=== PATIENT | female | born 1975 | race African-American/Black ===

== ENCOUNTER → 2016-08-30 | Outpatient (CLI) | payer BC ==
--- NOTE | 2016-08-30 16:13 | RAD ---
Right lower extremity venous ultrasound, 08/30/2016 : History: Right leg pain Duplex evaluation including grayscale, color flow and spectral Doppler analysis was performed. The right common femoral and superficial femoral veins are patent. There is occlusive thrombus in the right popliteal vein. Patent posterior tibial and peroneal veins are present in the right calf. IMPRESSION: Occlusive thrombus in the right popliteal vein. Note: These findings were given to the ordering provider, Jyoti Villanueva, by the photonics engineering technologist at the time of the exam.
== END | disposition home or self-care (01) ==
LOC: US 15:38
PROVIDERS: ATTEND Physician Assistant Surgical
DX: M79.661 Pain in right lower leg (principal); R60.0 Localized edema
CPT/HCPCS: 93971

== ENCOUNTER 2017-09-05 22:57 | Emergency (ER) | payer BC ==
[2017-09-05 23:34] LABS: ANION GAP 13 (6-14); BASO # 0.1 x10^3/uL (0.0-0.2); BASO % 1 % (0-3); BLOOD UREA NITROGEN 8 mg/dL (7-20); BUN/CREATININE RATIO 11 (6-20); CALCIUM 8.8 mg/dL (8.5-10.1); CARBON DIOXIDE 24 mmol/L (21-32); CHLORIDE 101 mmol/L (98-107); CREATININE 0.7 mg/dL (0.6-1.0); EOS # 0.8 x10^3/uL (0.0-0.7); EOS % 6 % (0-3); GLUCOSE 104 mg/dL (70-99); HEMOGLOBIN 8.6 g/dL (12.0-15.5); LYMPH # 3.2 x10^3/uL (1.0-4.8); LYMPH % 23 % (24-48); MEAN CORPUSCULAR HEMOGLOBIN 22 pg (25-35); MEAN CORPUSCULAR HGB CONC 31 g/dL (31-37); MEAN CORPUSCULAR VOLUME 70 fL (79-100); MONO # 0.8 x10^3/uL (0.0-1.1); MONO % 6 % (0-9); NEUT # 8.9 x10^3uL (1.8-7.7); NEUT % 64 % (31-73); PLATELET COUNT 478 x10^3/uL (140-400); POTASSIUM 3.3 mmol/L (3.5-5.1); RED CELL DISTRIBUTION WIDTH 20.3 % (11.5-14.5); SODIUM 138 mmol/L (136-145); WHITE BLOOD COUNT 13.8 x10^3/uL (4.0-11.0)
[2017-09-05 23:35] LABS: ADD MAN DIFF? YES
[2017-09-05 23:41] LABS: ALBUMIN 3.9 g/dL (3.4-5.0); ALBUMIN/GLOBULIN RATIO 0.9 (1.0-1.7); ALK PHOS 76 U/L (46-116); ALT (SGPT) 13 U/L (14-59); AST (SGOT) 12 U/L (15-37); TOTAL BILIRUBIN 0.3 mg/dL (0.2-1.0); TOTAL PROTEIN 8.3 g/dL (6.4-8.2)
[2017-09-05 23:43] LABS: TROPONINI < 0.017 ng/mL (0.000-0.055)
[2017-09-05 23:47] LABS: % EOS 2 % (0-5); % LYMPHS 12 % (24-48); % MONOS 5 % (0-10); % SEGS 81 % (35-66); ANISOCYTOSIS MOD; HYPOCHROMIA MARKED; MICROCYTOSIS MARKED; PLT ESTIMATE INCREASED (ADEQUATE); POIKILOCYTOSIS MOD; POLYCHROMASIA SLIGHT
[2017-09-05 23:48] LABS: HELMET CELLS OCC; OVALOCYTES MOD; TARGET CELLS OCC
[2017-09-05] MEDS: IOHEXOL 300 MG/ML 100ML VIAL. IV (23:56)
[2017-09-06] MEDS ORDERED: CONTRAST GIVEN MC
[2017-09-06] MEDS: RIVAROXABAN 15 MG TABLET. PO (01:05)
[2017-09-06 01:28] LABS: FIBRINOGEN 353 mg/dL (200-440); INR 1.3 (0.8-1.1); PARTIAL THROMBOPLASTIN TIME 31 SEC (24-38)
[2017-09-06 16:18] LABS: HOMOCYSTINE LEVEL 9.2 umol/L (0.0-15.0)
[2017-09-11 18:11] LABS: PROTHROMBIN GENE MUTATION Negative (.)
== END 2017-09-06 01:38 | disposition home or self-care (01) ==
LOC: ER 09-06 01:38
DX: R09.1 Pleurisy (principal); R00.0 Tachycardia, unspecified; I26.99 Other pulmonary embolism without acute cor pulmonale; Z86.718 Personal history of other venous thrombosis and embolism; Z79.01 Long term (current) use of anticoagulants; Z88.5 Allergy status to narcotic agent; Z91.013 Allergy to seafood
CPT/HCPCS: 36415; 71045; 71275; 80053; 81240; 83090; 84484; 85007; 85025; 85220; 85384; 85610; 85730; 93005; 99285-25; Q9967

== ENCOUNTER 2017-09-27 09:29 | Inpatient (IN) | payer BC ==
[2017-09-27 10:09] LABS: BASO % 1 % (0-3); EOS # 0.1 x10^3/uL (0.0-0.7); EOS % 1 % (0-3); HEMATOCRIT 21.3 % (36.0-47.0); LYMPH % 55 % (24-48); MEAN CORPUSCULAR HEMOGLOBIN 21 pg (25-35); MEAN CORPUSCULAR HGB CONC 31 g/dL (31-37); MEAN CORPUSCULAR VOLUME 67 fL (79-100); MONO # 0.3 x10^3/uL (0.0-1.1); MONO % 5 % (0-9); NEUT # 2.1 x10^3uL (1.8-7.7); NEUT % 39 % (31-73); PLATELET COUNT 422 x10^3/uL (140-400); RED BLOOD COUNT 3.16 x10^6/uL (3.50-5.40); RED CELL DISTRIBUTION WIDTH 20.4 % (11.5-14.5); WHITE BLOOD COUNT 5.5 x10^3/uL (4.0-11.0)
[2017-09-27 10:18] LABS: URINE HCG POC HCG NEGATIVE (Negative)
[2017-09-27 10:23] LABS: ANION GAP 10 (6-14); BLOOD UREA NITROGEN 9 mg/dL (7-20); BUN/CREATININE RATIO 11 (6-20); CALCIUM 8.8 mg/dL (8.5-10.1); CARBON DIOXIDE 25 mmol/L (21-32); CHLORIDE 105 mmol/L (98-107); CREATININE 0.8 mg/dL (0.6-1.0); GFR 94.3; GLUCOSE 98 mg/dL (70-99); HEMOGLOBIN 6.6 g/dL (12.0-15.5); POTASSIUM 3.4 mmol/L (3.5-5.1); SODIUM 140 mmol/L (136-145)
[2017-09-27 10:24] LABS: ADD MAN DIFF? YES; ALBUMIN 3.6 g/dL (3.4-5.0); ALBUMIN/GLOBULIN RATIO 0.9 (1.0-1.7); ALK PHOS 64 U/L (46-116); ALT (SGPT) 14 U/L (14-59); AST (SGOT) 14 U/L (15-37); LIPASE 127 U/L (73-393); MAGNESIUM 1.9 mg/dL (1.8-2.4); TOTAL BILIRUBIN 0.2 mg/dL (0.2-1.0); TOTAL PROTEIN 7.5 g/dL (6.4-8.2)
[2017-09-27 10:30] LABS: BARBITURATES NEG (NEG); BENZODIAZEPINES NEG (NEG); CANNABINOIDS POS (NEG); COCAINE NEG (NEG); METHADONE NEG (NEG); OPIATES NEG (NEG); PHENCYCLIDINE NEG (NEG)
[2017-09-27 10:30] LABS: TROPONINI < 0.017 ng/mL (0.000-0.055)
[2017-09-27 10:31] LABS: AMPHETAMINE/METHAMPHETAMINE NEG (NEG); ETHANOL, URINE NEG (NEG)
[2017-09-27 10:31] LABS: THYROID STIM HORMONE (TSH) 0.327 uIU/mL (0.358-3.74)
[2017-09-27 10:32] LABS: NT-PRO BNP 28 pg/mL (0-124)
[2017-09-27 10:32] LABS: BILIRUBIN,URINE NEGATIVE (NEG); CKMB MASS < 0.5 ng/mL (0.0-3.6); CLARITY,URINE CLEAR; COLOR,URINE YELLOW; CREATINE KINASE 97 U/L (26-192); GLUCOSE,URINE NEGATIVE (NEG); NITRITE,URINE NEGATIVE (NEG); PH,URINE 7.5; PROTEIN,URINE NEGATIVE (NEG-TRACE); UROBILINOGEN,URINE 0.2 mg/dL (0.2 mg/dL)
[2017-09-27 10:49] LABS: BACTERIA,URINE 0 /HPF (0-FEW); RBC,URINE 0 /HPF (0-2); WBC,URINE 0 /HPF (0-4)
[2017-09-27 11:06] LABS: % BANDS 2 % (0-9); % BASOS 3 % (0-3); % EOS 3 % (0-5); % LYMPHS 32 % (24-48); % MONOS 5 % (0-10); % SEGS 55 % (35-66)
[2017-09-27 11:07] LABS: ANISOCYTOSIS PRESENT; BIZZARE CELLS PRESENT; HYPOCHROMIA PRESENT; MICROCYTOSIS PRESENT; OVALOCYTES PRESENT; PLT ESTIMATE ADEQUATE (ADEQUATE); POIKILOCYTOSIS PRESENT; SCHISTOCYTES FEW
[2017-09-27 11:13] LABS: INR 1.6 (0.8-1.1); PROTHROMBIN TIME PATIENT 17.8 SEC (11.7-14.0)
[2017-09-27 11:22] LABS: D-DIMER < 0.27 ug/mlFEU (0.00-0.50)
[2017-09-27] MEDS ORDERED: ONDANSETRON PF 4 MG/2 ML VIAL. IV ×2 (12:15→13:45)
[2017-09-27] MEDS: IV NORMAL SALINE 1000ML BAG 1,000 ML IV (12:57)
[2017-09-27] MEDS: FAMOTIDINE 20 MG/2 ML VIAL IVP ×2 (12:57→20:56)
[2017-09-27 13:10] LABS: RETIC COUNT 1.6 % (0.5-2.5)
[2017-09-27] MEDS: IV RINGERS,LACTATED 1000ML 1,000 ML IV (13:40)
[2017-09-27] MEDS ORDERED: PROPOFOL 20 ML IV (13:42)
[2017-09-27] MEDS ORDERED: LIDOCAINE 2% 100 MG/5 ML SYRINGE. (13:42)
[2017-09-27] MEDS ORDERED: PROCHLORPERAZINE 10 MG/2 ML VIAL. IV (13:45)
[2017-09-27] MEDS ORDERED: HYDROmorphone 2 MG/ML VIAL IV (13:45)
[2017-09-27] MEDS ORDERED: LIDOCAINE 1% PF 2 ML VIAL. ID (13:45)
[2017-09-27] MEDS ORDERED: fentaNYL PF VIAL 100 MCG/2 ML VIAL IV ×2 (13:45)
[2017-09-27] MEDS ORDERED: MORPHINE SULFATE 2 MG/ML DISP.SYRIN. IV (13:45)
[2017-09-27 13:46] LABS: % SAT IRON 2 % (15-34); IRON,SERUM 8 ug/dL (50-170)
[2017-09-27 15:22] LABS: IMMEDIATE SPIN CROSSMATCH 1 1
[2017-09-27 16:18] LABS: VITAMIN-B12 263 pg/mL (247-911)
[2017-09-27 16:18] LABS: FOLATE 10.86 ng/ml (3.2-20.0)
[2017-09-28 04:34] LABS: ADD MAN DIFF? NO
[2017-09-28 04:44] LABS: BASO % 1 % (0-3); EOS # 0.1 x10^3/uL (0.0-0.7); EOS % 2 % (0-3); HEMATOCRIT 23.2 % (36.0-47.0); HEMOGLOBIN 7.3 g/dL (12.0-15.5); LYMPH # 2.8 x10^3/uL (1.0-4.8); LYMPH % 56 % (24-48); MEAN CORPUSCULAR HEMOGLOBIN 22 pg (25-35); MEAN CORPUSCULAR HGB CONC 32 g/dL (31-37); MEAN CORPUSCULAR VOLUME 70 fL (79-100); MONO # 0.3 x10^3/uL (0.0-1.1); MONO % 5 % (0-9); NEUT # 1.8 x10^3uL (1.8-7.7); NEUT % 36 % (31-73); PLATELET COUNT 359 x10^3/uL (140-400); RED BLOOD COUNT 3.32 x10^6/uL (3.50-5.40); RED CELL DISTRIBUTION WIDTH 21.1 % (11.5-14.5); WHITE BLOOD COUNT 5.1 x10^3/uL (4.0-11.0)
[2017-09-28 05:08] LABS: ALBUMIN/GLOBULIN RATIO 0.9 (1.0-1.7); ALK PHOS 55 U/L (46-116); ALT (SGPT) 15 U/L (14-59); ANION GAP 9 (6-14); AST (SGOT) 14 U/L (15-37); BLOOD UREA NITROGEN 11 mg/dL (7-20); BUN/CREATININE RATIO 16 (6-20); CALCIUM 8.2 mg/dL (8.5-10.1); CARBON DIOXIDE 23 mmol/L (21-32); CHLORIDE 108 mmol/L (98-107); CREATININE 0.7 mg/dL (0.6-1.0); GLUCOSE 85 mg/dL (70-99); POTASSIUM 3.6 mmol/L (3.5-5.1); SODIUM 140 mmol/L (136-145); TOTAL BILIRUBIN 0.5 mg/dL (0.2-1.0); TOTAL PROTEIN 6.5 g/dL (6.4-8.2)
[2017-09-28] MEDS: FAMOTIDINE 20 MG/2 ML VIAL IVP (09:14)
[2017-09-28] MEDS: FERROUS SULFATE ORAL 300 MG/5 ML SOLUTION. PO (10:55)
[2017-09-28] MEDS ORDERED: FAMOTIDINE 20 MG TABLET. PO (21:00)
== END 2017-09-28 11:20 | disposition home or self-care (01) | DRG 761 ==
LOC: ER 09:29 → 5 NORTH 11:49
PROC: 0DJ08ZZ Inspection of Upper Intestinal Tract, Via Natural or Artificial Opening Endoscopic (ICD-10-PCS; principal; 2017-09-27 14:00)
PROC: 30233N1 Transfusion of Nonautologous Red Blood Cells into Peripheral Vein, Percutaneous Approach (ICD-10-PCS; 2017-09-27 14:02)
DX: D25.9 Leiomyoma of uterus, unspecified (principal); D50.9 Iron deficiency anemia, unspecified; F12.90 Cannabis use, unspecified, uncomplicated; F17.210 Nicotine dependence, cigarettes, uncomplicated; F41.9 Anxiety disorder, unspecified; N92.0 Excessive and frequent menstruation with regular cycle; K29.60 Other gastritis without bleeding; R51 Headache; K21.9 Gastro-esophageal reflux disease without esophagitis; Z86.711 Personal history of pulmonary embolism; Z86.718 Personal history of other venous thrombosis and embolism; Z98.891 History of uterine scar from previous surgery; Z88.6 Allergy status to analgesic agent; Z91.013 Allergy to seafood; Z71.6 Tobacco abuse counseling; Z79.1 Long term (current) use of non-steroidal anti-inflammatories (NSAID); Z87.11 Personal history of peptic ulcer disease; Z79.01 Long term (current) use of anticoagulants
CPT/HCPCS: 36415; 71045; 80053; 80307; 81001; 81025; 82553; 82607; 82746; 83540; 83550; 83690; 83735; 83880; 84443; 84484; 85007; 85025; 85045; 85379; 85610; 86850; 86900; 86901; 86920; 93005; 96360; 99285; 99285-25; 99406; J2704; J7030; P9016; S0028

== ENCOUNTER → 2018-06-21 | Outpatient (CLI) | payer BC ==
[2017-09-28 10:45] VITALS: BP 102/70
[~2018-06-21] MED LIST: APIX5TAB PO; FERR325T14 PO; PANT40TA3 PO; RIVA15TA PO; SERT50TA PO
--- NOTE | 2018-07-08 16:40 | KCIC ---
Bilateral digital screening mammograms: Reason for examination: Routine screening. Comparison is made to previous study dated 05/29/2013. Interpretation was made with the benefit of CAD. The skin and nipples show no abnormalities. No abnormal axillary lymph nodes are seen. The breast parenchyma is heterogeneously dense. (Breast density: Category C.) There are no dominant masses, suspicious calcifications or architectural distortion. Impression: No evidence of malignancy. Recommend routine screening. Your patient's mammogram demonstrates that she has dense breast tissue (breast density category C or D), which could hide abnormalities, and if she has other risk factors for breast cancer that have been identified, she might benefit from supplemental screening tests that may be suggested by you as her ordering physician. Dense breast tissue, in and of itself, is a relatively common condition. Therefore, this information is not provided to cause undue concern, but rather to raise your awareness and to promote discussion with your patient regarding the presence of other risk factors, in addition to dense breast tissue. Your patient's mammography results will be sent to her. BI-RAD Category 1: Negative. "Our facility is accredited by the [employer] Mammography Program." This patient's information has been entered into a reminder system for the patient to be notified with the results of her examination and a target date for the next mammogram. Electronically signed by: Krista Lewis MD (07/08/2018 4:36 PM) [id number]
== END | disposition home or self-care (01) ==
LOC: KCIC MAMMO 08:49
PROVIDERS: ATTEND Nurse Practitioner Gerontology
DX: Z12.31 Encounter for screening mammogram for malignant neoplasm of breast (principal)
CPT/HCPCS: 77067

== ENCOUNTER 2018-08-06 10:27 | Emergency (ER) | payer BC ==
[~2018-08-06] VITALS: Ht 157.5 cm; Wt 59.0 kg
[2018-08-06] MEDS ORDERED: ASPIRIN 325 MG TABLET PO ONE (11:00)
[2018-08-06] MEDS ORDERED: IV NORMAL SALINE 1000ML BAG 1,000 ML IV ONE (11:00)
[2018-08-06] MEDS ORDERED: IOHEXOL 300 MG/ML 100ML VIAL. IV ONE (11:15)
--- NOTE | 2018-08-06 11:21 | EKG ---
[facility] [address] [place] [address] Test Date: 2018-08-06 Test Time: 10:39:13 Pat Name: ETHAN GRIFFITH Department: Room: Gender: F Engineering Scientist: : 1975 Requested By: ISRAEL KING Order Number: [id number] Reading MD: Measurements Intervals [place] Rate: 89 P: 53 MT: 144 QRS: 12 QRSD: 84 T: 56 QT: 362 QTc: 441 Interpretive Statements SINUS RHYTHM NORMAL ECG RI6.01 No previous ECG available for comparison
[2018-08-06 11:31] LABS: CALCIUM 8.7 mg/dL (8.5-10.1); CREATININE 0.8 mg/dL (0.6-1.0); GFR 93.9; POTASSIUM 3.6 mmol/L (3.5-5.1)
[2018-08-06 11:37] LABS: ALBUMIN 3.9 g/dL (3.4-5.0); ALBUMIN/GLOBULIN RATIO 0.8 (1.0-1.7); MAGNESIUM 1.8 mg/dL (1.8-2.4); TOTAL BILIRUBIN 0.1 mg/dL (0.2-1.0); TOTAL PROTEIN 8.6 g/dL (6.4-8.2)
[2018-08-06 11:45] LABS: CREATINE KINASE 114 U/L (26-192)
[2018-08-06 11:51] LABS: BASO # 0.1 x10^3/uL (0.0-0.2); BASO % 1 % (0-3); EOS # 0.1 x10^3/uL (0.0-0.7); EOS % 1 % (0-3); HEMATOCRIT 30.1 % (36.0-47.0); HEMOGLOBIN 9.3 g/dL (12.0-15.5); LYMPH # 3.7 x10^3/uL (1.0-4.8); LYMPH % 45 % (24-48); MEAN CORPUSCULAR HEMOGLOBIN 22 pg (25-35); MEAN CORPUSCULAR HGB CONC 31 g/dL (31-37); MEAN CORPUSCULAR VOLUME 72 fL (79-100); MONO # 0.4 x10^3/uL (0.0-1.1); MONO % 5 % (0-9); NEUT # 3.9 x10^3uL (1.8-7.7); NEUT % 48 % (31-73); PLATELET COUNT 319 x10^3/uL (140-400); RED CELL DISTRIBUTION WIDTH 22.5 % (11.5-14.5); WHITE BLOOD COUNT 8.1 x10^3/uL (4.0-11.0)
[2018-08-06 11:59] LABS: PROTHROMBIN TIME PATIENT 22.7 SEC (11.7-14.0)
--- NOTE | 2018-08-06 12:34 | RAD ---
CT ANGIOGRAPHY CHEST Indication: Chest pain, history of pulmonary embolism. . Comparison: September 05, 2017 Technique: After intravenous contrast administration, CT imaging was performed of the chest. MIP reconstructions were obtained. Exposure: One or more of the following individualized dose reduction techniques were utilized for this examination: 1. Automated exposure control 2. Adjustment of the mA and/or kV according to patient size 3. Use of iterative reconstruction technique. FINDINGS: Pulmonary arteries: No evidence of pulmonary embolism on today's study. Thoracic aorta: Pulsatility artifact of the ascending aorta. No evidence of aortic aneurysm. No descending aortic dissection. Thyroid gland:Visualized aspect is unremarkable. Lymph nodes:No significant enlargement Heart: No significant pericadial effusion. Esophagus: Unremarkable Pleural spaces: No significant effusion Lungs: Tiny right upper lung micronodule is again identified. No airspace consolidation or infiltrate. Trachea and central airways: Patent Bones: No destructive process Upper abdomen: Slices through the upper abdomen are limited due to the technique .No obvious acute findings. IMPRESSION: 1. Negative for pulmonary embolism on today's study. 2. 3 mm right upper lung nodule again identified. Electronically signed by: Clark Laws MD (08/06/2018 12:30 PM) [facility]
--- NOTE | 2018-08-06 12:40 | RAD ---
Left lower extremity venous duplex study 08/06/2018 Clinical History: Left leg pain. Technique: Using a combination of real time ultrasound imaging and color-flow and pulse Doppler imaging techniques along with graded compression and augmentation, duplex evaluation of the deep venous system of the left lower extremity was performed. Multiple images were obtained. Findings: There is no sonographic evidence of deep venous thrombosis involving the visualized deep venous structures of the left lower extremity. Impression: Negative study. Electronically signed by: Vinny Em MD (08/06/2018 12:36 PM) [facility]
[2018-08-06 12:51] LABS: % ATYL 1 % (0-0); % BANDS 1 % (0-9); % LYMPHS 17 % (24-48); % MONOS 5 % (0-10); % SEGS 76 % (35-66)
[2018-08-06 12:52] LABS: ANISOCYTOSIS MOD; HYPOCHROMIA SLIGHT; PLT ESTIMATE ADEQUATE (ADEQUATE); POIKILOCYTOSIS SLIGHT
[2018-08-06 12:53] LABS: BIZZARE CELLS OCC
--- NOTE | 2018-08-06 13:04 | PHYS DOC ---
Past Medical History Past Medical History: Anemia, DVT, Other Additional Past Medical Histor: uterine fibroid,PE X 2 Past Surgical History: Other Additional Past Surgical Histo: UTERINE FIBROIDS REMOVED Alcohol Use: Occasionally Drug Use: None Adult General Chief Complaint Chief Complaint: CHEST PAIN HPI HPI Patient is a 43 year old [f__sex] who presents with [] Review of Systems Review of Systems Constitutional: Denies fever or chills [] Eyes: Denies change in visual acuity, redness, or eye pain [] HENT: Denies nasal congestion or sore throat [] Respiratory: Denies cough or shortness of breath [] Cardiovascular: No additional information not addressed in HPI [] GI: Denies abdominal pain, nausea, vomiting, bloody stools or diarrhea [] : Denies dysuria or hematuria [] Musculoskeletal: Denies back pain or joint pain [] Integument: Denies rash or skin lesions [] Neurologic: Denies headache, focal weakness or sensory changes [] Endocrine: Denies polyuria or polydipsia [] All other systems were reviewed and found to be within normal limits, except as documented in this note. Current Medications Current Medications Current Medications Medications (Trade) Dose Ordered Sig/Michelle Start Time Stop Time Status Last Admin Dose Admin Aspirin (Malika Aspirin) 325 mg 1X ONCE 08/06/18 11:00 08/06/18 11:02 DC 08/06/18 11:16 325 MG Dexamethasone Sodium Phosphate (Decadron) 10 mg 1X ONCE 08/06/18 13:15 08/06/18 13:16 DC 08/06/18 13:24 10 MG Iohexol (Omnipaque 300 Mg/ml) 90 ml 1X ONCE 08/06/18 11:15 08/06/18 11:18 DC 08/06/18 11:53 75 ML Sodium Chloride 1,000 ml @ 1,000 mls/hr 1X ONCE 08/06/18 11:00 08/06/18 11:59 DC 08/06/18 11:16 1,000 MLS/HR Allergies Allergies Allergies Coded Allergies Type Severity Reaction Last Updated Verified morphine Allergy Intermediate 09/27/17 Yes shellfish derived Allergy Intermediate 09/27/17 Yes Physical Exam Physical Exam Constitutional: Well developed, well nourished, no acute distress, non-toxic appearance. [] HENT: Normocephalic, atraumatic, bilateral external ears normal, oropharynx moist, no oral exudates, nose normal. [] Eyes: PERRLA, EOMI, conjunctiva normal, no discharge. [] Neck: Normal range of motion, no tenderness, supple, no stridor. [] Cardiovascular:Heart rate regular rhythm, no murmur [] Lungs & Thorax: Bilateral breath sounds clear to auscultation [] Abdomen: Bowel sounds normal, soft, no tenderness, no masses, no pulsatile masses. [] Skin: Warm, dry, no erythema, no rash. [] Back: No tenderness, no CVA tenderness. [] Extremities: No tenderness, no cyanosis, no clubbing, ROM intact, no edema. [] Neurologic: Alert and oriented X 3, normal motor function, normal sensory function, no focal deficits noted. [] Psychologic: Affect normal, judgement normal, mood normal. [] Current Patient Data Vital Signs Vital Signs Date Time Temp Pulse Resp B/P (MAP) Pulse Ox O2 Delivery O2 Flow Rate FiO2 08/06/18 13:59 78 110/71 (84) 100 Room Air 08/06/18 10:40 98.5 20 98.5 Lab Values Laboratory Tests Test 08/06/18 10:55 08/06/18 11:35 08/06/18 13:21 Sodium Level 137 mmol/L (136-145) Potassium Level 3.6 mmol/L (3.5-5.1) Chloride Level 103 mmol/L (98-107) Carbon Dioxide Level 24 mmol/L (21-32) Anion Gap 10 (6-14) Blood Urea Nitrogen 9 mg/dL (7-20) Creatinine 0.8 mg/dL (0.6-1.0) Estimated GFR (Cockcroft-Gault) 93.9 BUN/Creatinine Ratio 11 (6-20) Glucose Level 120 mg/dL (70-99) H Calcium Level 8.7 mg/dL (8.5-10.1) Magnesium Level 1.8 mg/dL (1.8-2.4) Total Bilirubin 0.1 mg/dL (0.2-1.0) L Aspartate Amino Transferase (AST) 10 U/L (15-37) L Alanine Aminotransferase (ALT) 13 U/L (14-59) L Alkaline Phosphatase 82 U/L (46-116) Creatine Kinase 114 U/L (26-192) Creatine Kinase MB (Mass) < 0.5 ng/mL (0.0-3.6) Creatine Kinase MB Relative Index % (0-4) Troponin I Quantitative < 0.017 ng/mL (0.000-0.055) < 0.017 ng/mL (0.000-0.055) CS-Lie-G-Type Natriuretic Peptide 17 pg/mL (0-124) Total Protein 8.6 g/dL (6.4-8.2) H Albumin 3.9 g/dL (3.4-5.0) Albumin/Globulin Ratio 0.8 (1.0-1.7) L Lipase 149 U/L (73-393) White Blood Count 8.1 x10^3/uL (4.0-11.0) Red Blood Count 4.20 x10^6/uL (3.50-5.40) Hemoglobin 9.3 g/dL (12.0-15.5) L Hematocrit 30.1 % (36.0-47.0) L Mean Corpuscular Volume 72 fL (79-100) L Mean Corpuscular Hemoglobin 22 pg (25-35) L Mean Corpuscular Hemoglobin Concent 31 g/dL (31-37) Red Cell Distribution Width 22.5 % (11.5-14.5) H Platelet Count 319 x10^3/uL (140-400) Neutrophils (%) (Auto) 48 % (31-73) Lymphocytes (%) (Auto) 45 % (24-48) Monocytes (%) (Auto) 5 % (0-9) Eosinophils (%) (Auto) 1 % (0-3) Basophils (%) (Auto) 1 % (0-3) Neutrophils # (Auto) 3.9 x10^3uL (1.8-7.7) Lymphocytes # (Auto) 3.7 x10^3/uL (1.0-4.8) Monocytes # (Auto) 0.4 x10^3/uL (0.0-1.1) Eosinophils # (Auto) 0.1 x10^3/uL (0.0-0.7) Basophils # (Auto) 0.1 x10^3/uL (0.0-0.2) Segmented Neutrophils % 76 % (35-66) H Band Neutrophils % 1 % (0-9) Lymphocytes % 17 % (24-48) L Atypical Lymphocytes % (Manual) 1 % (0-0) H Monocytes % 5 % (0-10) Platelet Estimate Adequate (ADEQUATE) Large Platelets Occ Hypochromasia Slight Poikilocytosis Slight Anisocytosis Mod RBC Morphology Bizarre Forms Occ Prothrombin Time 22.7 SEC (11.7-14.0) H Prothrombin Time INR 2.0 (0.8-1.1) H PTT 38 SEC (24-38) Laboratory Tests 08/06/18 11:35 Laboratory Tests 08/06/18 10:55 EKG EKG @1039 NSR at 89bpm, NO ST elevation, Radiology/Procedures Radiology/Procedures PROCEDURE: CT ANGIOGRAPHY CHEST CT ANGIOGRAPHY CHEST Indication: Chest pain, history of pulmonary embolism. . Comparison: September 05, 2017 Technique: After intravenous contrast administration, CT imaging was performed of the chest. MIP reconstructions were obtained. Exposure: One or more of the following individualized dose reduction techniques were utilized for this examination: 1. Automated exposure control 2. Adjustment of the mA and/or kV according to patient size 3. Use of iterative reconstruction technique. FINDINGS: Pulmonary arteries: No evidence of pulmonary embolism on today's study. Thoracic aorta: Pulsatility artifact of the ascending aorta. No evidence of aortic aneurysm. No descending aortic dissection. Thyroid gland:Visualized aspect is unremarkable. Lymph nodes:No significant enlargement Heart: No significant pericadial effusion. Esophagus: Unremarkable Pleural spaces: No significant effusion Lungs: Tiny right upper lung micronodule is again identified. No airspace consolidation or infiltrate. Trachea and central airways: Patent Bones: No destructive process Upper abdomen: Slices through the upper abdomen are limited due to the technique .No obvious acute findings. IMPRESSION: 1. Negative for pulmonary embolism on today's study. 2. 3 mm right upper lung nodule again identified. Electronically signed by: Clark Laws MD (08/06/2018 12:30 PM) Course & Med Decision Making Course & Med Decision Making Pertinent Labs and Imaging studies reviewed. (See chart for details) [] Dragon Disclaimer Dragon Disclaimer This electronic medical record was generated, in whole or in part, using a voice recognition dictation system. Departure Departure Impression: Primary Impression: Atypical chest pain Disposition: 01 HOME, SELF-CARE Condition: STABLE Referrals: SHAHAB RUSSELL APRN (PCP) Patient Instructions: Chest Pain (Nonspecific), Hhrw-dt-Conm Scripts Orphenadrine Citrate (ORPHENADRINE CITRATE) 100 Mg Tablet.er 100 MG PO BID PRN for MUSCLE PAIN, #14 Prov: CLARK KING DO 08/06/18 Prednisone (PREDNISONE) 20 Mg Tablet 2 TAB PO DAILY, #8 TAB Start tomorrow 08/07/18. Prov: CLARK KING DO 08/06/18 CLARK KING DO Aug 06, 2018 13:04
[2018-08-06] MEDS ORDERED: DEXAMETHASONE SOD PHOS 20 MG/5 ML VIAL. IV ONE (13:15)
[2018-08-06 13:59] VITALS: BP 110/71
[2018-08-06] MEDS ORDERED: PRED20TA PO (13:59)
[2018-08-06] MEDS ORDERED: ORPH100T PO (13:59)
== END 2018-08-06 14:08 | disposition home or self-care (01) ==
LOC: ER 10:27
DX: R07.89 Other chest pain (principal); M79.605 Pain in left leg; Z86.718 Personal history of other venous thrombosis and embolism; Z88.5 Allergy status to narcotic agent; Z91.013 Allergy to seafood
CPT/HCPCS: 36415; 71275; 80053; 82553; 83690; 83735; 83880; 84484; 85007; 85025; 85610; 85730; 93005; 93971; 96374; 99284; J1100; J7030; Q9967

== ENCOUNTER → 2020-05-18 | Outpatient (CLI) | payer BC ==
[~2020-05-18] MED LIST changes: +ORPH100T PO; -PANT40TA3 PO; +PANT40TA77 PO; +PRED20TA PO
--- NOTE | 2020-05-18 14:46 | KCIC ---
Left lower extremity venous doppler ultrasound History: Left lower extremity pain Comparison: None Findings: Multiple grayscale, color, and duplex spectral analysis sonographic images were acquired of the left lower extremity veins to evaluate for the presence of DVT. There is normal phasicity. Normal compression, color-flow, and augmentation is demonstrated from the left common femoral to the popliteal veins. There is normal color flow of the proximal greater saphenous and profunda femoris veins. There is normal color flow of segments of the calf veins. At site of pain in the medial left calf region, there is focus of echogenicity within a superficial vein. Impression: 1. There is no evidence of deep venous thrombosis from the left common femoral to the popliteal veins. 2. There is focus of superficial thrombophlebitis corresponding with site of pain of the medial left calf region. Electronically signed by: Monico Rowe MD (05/18/2020 2:43 PM) [id number]
== END | disposition home or self-care (01) ==
LOC: KCIC US 10:51
PROVIDERS: ATTEND Family Medicine
DX: I80.8 Phlebitis and thrombophlebitis of other sites (principal)
CPT/HCPCS: 93971

== ENCOUNTER → 2020-08-18 | Outpatient (CLI) | payer BC ==
--- NOTE | 2020-08-18 07:03 | RAD ---
Pelvic ultrasound dated 08/18/2020. No comparison available. Clinical data indication: Pelvic pain and bloating. FINDINGS: Transabdominal pelvic ultrasound was performed. The uterus measures 15.8 x 10.1 x 9.0 cm. There are m ultiple mass lesions throughout the myometrium, consistent with fibroids. Largest mass measures up to 8.4 cm. Endometrium is not well visualized and obscured by the myometrial masses. Right ovary measures 3.3 x 2.3 x 1.8 cm. Left ovary measures 5.3 x 3.2 x 2.4 cm. No adnexal mass or f ree fluid. There is normal color Doppler flow to both ovaries. There is a small simple cyst or domina nt follicle left ovary measuring up to 1.5 cm. IMPRESSION: 1. No acute sonographic abnormality. 2. Fibroid uterus. Electronically signed by: Clark Velásquez MD (08/18/2020 7:00 AM) [facility]
== END ==
LOC: US 06:30
PROVIDERS: ATTEND Family Medicine
DX: D25.9 Leiomyoma of uterus, unspecified (principal); R14.0 Abdominal distension (gaseous)
CPT/HCPCS: 76856

== ENCOUNTER → 2020-10-01 | Outpatient (CLI) | payer BC ==
[~2020-10-01] MED LIST changes: +CEPH250C PO; +IBUP-1060 PO; +IOHEXOL 300 MG/ML 100ML VIAL. IV ONE; +OXYC1TAB15 PO; +RIVA20TA2 PO
--- NOTE | 2020-10-01 10:53 | KCIC ---
Study: CT CHEST WITH CONTRAST - PULMONARY ANGIOGRAM History: Hemoptysis. History of DVT. Shortness of air. Comparison: 08/06/2018 Technique: Helical CT of the chest performed after the administration of 100 cc Omnipaque 300 intrav enous contrast and timed for angiographic evaluation of the pulmonary arteries per PE protocol. Coron al and sagittal 3D MIP reformations were obtained. One or more of the following individualized dose reduction techniques were utilized for this examinat ion: 1. Automated exposure control 2. Adjustment of the mA and/or kV according to patient size 3. Use of iterative reconstruction technique. Findings: Pulmonary Arteries: Numerous pulmonary emboli extending into all lung lobes, the far distal aspect of the main right pulmonary artery and varying involvement of lobar, segmental and subsegmental vessels . No saddle embolism. Associated pulmonary infarct laterally within the right lower lobe. Main pulmon chloe artery transverse dimension is within normal limits at 2.6 cm. The interventricular septum is mid line. Heart/Systemic Vasculature: Nonaneurysmal aorta. No dissection. The visualized great vessels are elena nt. Mediastinum: No adenopathy. Lungs: As above, right lower lobe pulmonary infarct measuring up to 2.3 cm AP by 1.6 cm transverse by 3.6 cm craniocaudal. No significant abnormality elsewhere throughout either lungs. Neck/Axilla/Body Wall: No discrete thyroid nodule. Axillary lymph nodes are within normal limits for size. Excrescence off the superficial soft tissues at the level of the inferior tip of the right scap vane, image 80 series 4. Upper Abdomen: Lobulated enhancing focus within the right hepatic lobe. This was very faintly present on the comparison on account of differences in bolus timing. The most likely etiology is a hemangiom a. Smaller more subtle enhancing focus within the left hepatic lobe on image [address] focus of low attenuation within the left hepatic lobe has been present on comparison exams. Bones: No acute or aggressive osseous process. Incompletely assessed degenerative changes at the lowe r cervical spine. Scattered thoracic facet arthrosis. Miscellaneous: None. IMPRESSION: 1. Relatively extensive acute pulmonary embolic burden to include emboli within the distal aspect of the main right pulmonary artery. Lobar, segmental and subsegmental involvement to varying extent. As sociated pulmonary infarct within the lateral aspect of the right lower lobe. No CT manifestations of overt right heart strain with the interventricular septum midline but not deviated to the left. 2. Peripherally enhancing focus within the right hepatic lobe and a small focus of enhancement withi n the left hepatic lobe. The right hepatic lobe finding was faintly visualized on the most recent com parison. The favored etiology are hemangiomas. Eventual MRI could be considered to more fully assess though if any prior imaging of the abdomen has been performed elsewhere, comparison would be useful t o confirm stability and avoid an additional scan. 3. Superficial soft tissue excrescence off the right aspect of the back at the level of the inferior scapular angle. This could represent a skin tag or other benign finding but correlation with direct inspection is recommended (image 80 series 4) FOR INTERNAL CODING PURPOSES Critical result: Findings discussed with Dr. Gallagher on 10/01/2020 at 10:40 AM. RESULT CODE: (C) Electronically signed by: RIAN HOOKS MD (10/01/2020 10:51 AM) [id number]
== END ==
LOC: KCIC CT 08:47
PROVIDERS: ATTEND Family Medicine
DX: R04.2 Hemoptysis (principal); I26.99 Other pulmonary embolism without acute cor pulmonale; Z86.718 Personal history of other venous thrombosis and embolism
CPT/HCPCS: 71275; Q9967

== ENCOUNTER → 2020-11-23 | Outpatient (CLI) | payer BC ==
[~2020-11-23] MED LIST changes: -CEPH250C PO; -IOHEXOL 300 MG/ML 100ML VIAL. IV ONE; -RIVA20TA2 PO
== END ==
LOC: LAB 10:03
PROVIDERS: ATTEND Obstetrics & Gynecology
DX: Z01.812 Encounter for preprocedural laboratory examination (principal); R58 Hemorrhage, not elsewhere classified; Z20.822 Contact with and (suspected) exposure to COVID-19
CPT/HCPCS: U0003; U0005

== ENCOUNTER 2020-11-26 09:49 | Day surgery (SDC) | payer BC ==
[~2020-11-26 09:49] MED LIST changes: -IBUP-1060 PO; -OXYC1TAB15 PO
[2020-11-26] MEDS ORDERED: IV RINGERS,LACTATED 1000ML 1,000 ML IV SCH ×2 (10:45→11:00)
[2020-11-26 10:52] LABS: BASO % 1 % (0-3); EOS # 0.2 x10^3/uL (0.0-0.7); EOS % 3 % (0-3); HEMATOCRIT 32.7 % (36.0-47.0); HEMOGLOBIN 10.2 g/dL (12.0-15.5); LYMPH # 1.2 x10^3/uL (1.0-4.8); LYMPH % 19 % (24-48); MEAN CORPUSCULAR HEMOGLOBIN 27 pg (25-35); MEAN CORPUSCULAR HGB CONC 31 g/dL (31-37); MEAN CORPUSCULAR VOLUME 87 fL (79-100); MONO # 0.5 x10^3/uL (0.0-1.1); MONO % 8 % (0-9); NEUT # 4.6 x10^3/uL (1.8-7.7); NEUT % 70 % (31-73); PLATELET COUNT 399 x10^3/uL (140-400); RED BLOOD COUNT 3.76 x10^6/uL (3.50-5.40); RED CELL DISTRIBUTION WIDTH 25.7 % (11.5-14.5); WHITE BLOOD COUNT 6.6 x10^3/uL (4.0-11.0)
[2020-11-26] MEDS ORDERED: PROCHLORPERAZINE 10 MG/2 ML VIAL. IVP PRN (11:00)
[2020-11-26] MEDS ORDERED: fentaNYL PF VIAL 100 MCG/2 ML VIAL IVP PRN ×2 (11:00)
[2020-11-26] MEDS ORDERED: HYDROmorphone 2 MG/ML VIAL IVP PRN (11:00)
[2020-11-26] MEDS ORDERED: MORPHINE SULFATE 2 MG/ML VIAL. IVP PRN (11:00)
[2020-11-26 11:02] LABS: PROTHROMBIN TIME PATIENT 25.8 SEC (11.7-14.0)
[2020-11-26] MEDS ORDERED: fentaNYL PF VIAL 100 MCG/2 ML VIAL ONE ×2 (11:16→12:59)
[2020-11-26] MEDS ORDERED: PROPOFOL 10 MG/ML (20ML) VIAL. IV ONE (11:16)
[2020-11-26] MEDS ORDERED: LIDOCAINE 2% PF 5 ML VIAL. ONE (11:16)
[2020-11-26] MEDS ORDERED: SEVOFLURANE 16 TO 30 MINUTES. IH ONE (11:35)
[2020-11-26] MEDS ORDERED: ONDANSETRON PF 4 MG/2 ML VIAL. ONE (11:35)
[2020-11-26] MEDS ORDERED: DEXAMETHASONE SOD PHOS 4 MG/ML VIAL ONE (11:35)
[2020-11-26] MEDS ORDERED: OXYC1TAB15 PO (12:31)
[2020-11-26] MEDS ORDERED: IBUP-1060 PO (12:31)
[2020-11-26 12:38] LABS: ANISOCYTOSIS MARKED; HYPOCHROMIA MOD; OVALOCYTES FEW; PLT ESTIMATE ADEQUATE (ADEQUATE); POLYCHROMASIA SLIGHT; SCHISTOCYTES OCC
[2020-11-26 13:12] VITALS: BP 122/77
--- NOTE | 2020-11-26 13:15 | PDOC4 ---
OPERATIVE NOTE: PreOp Dx: 1.) Heavy bleeding - 2/2 Xarelto, 2.) Fibroids, 3.) H/o myomectomy, 4.) H/o DVT and PE, 5.) Prev C/S x 2, 6.) Contraception - BTL PostOp Dx: same Procedure: H/S, D&C, Novasure ablation Surgeon: Sharyn Pereira Anesthesia: LMA EBL: 50cc Fluids: 850cc Complication: none Findings: benign appearing endometrium, cervix measuring 6 cm, endometrial cavity measuring 10 cm. Measurements placed into tower (6.5 length, 4.7 width). Lower uterine segment well ablated. Fundus does not appear to be ablated. ~25% of endometrial cavity ablated. Path: endometrial curetting ISRAEL PEREIRA MD Nov 26, 2020 13:15
--- NOTE | 2020-11-26 13:54 | OP ---
DATE OF SURGERY: 11/26/2020 PREOPERATIVE DIAGNOSES: 1. Heavy bleeding secondary to Xarelto. 2. Fibroids. 3. History of myomectomy. 4. History of deep venous thrombosis and pulmonary embolism. 5. Previous section x 2. 6. History of bilateral tubal ligation. POSTOPERATIVE DIAGNOSES: 1. Heavy bleeding secondary to Xarelto. 2. Fibroids. 3. History of myomectomy. 4. History of deep venous thrombosis and pulmonary embolism. 5. Previous section x 2. 6. History of bilateral tubal ligation. PROCEDURE: Hysteroscopy, D and C, and NovaSure ablation. SURGEON: Clark Pereira MD ANESTHESIA: LMA. ESTIMATED BLOOD LOSS: 50 mL. FLUIDS: 850 mL. COMPLICATIONS: None. FINDINGS: Benign appearing endometrium with a cervix measuring 6 cm and endometrial cavity measuring 10 cm. Measurements were placed into NovaSure tower with a length of 6.5 and a width of 4.7. The lower uterine segment appeared to be well ablated status post procedure, the fundus did not. It appears that approximately 25% of the endometrial cavity is ablated after the procedure was completed. PATHOLOGY: Endometrial curetting. INDICATIONS: The patient is a 45-year-old 3, para 2-0-1-2, who presented to the office with heavy bleeding that started after restarting Xarelto. The patient was reporting heavy constant bleeding after starting the Xarelto. The patient had been placed on this blood thinner for the second. This time after finding a PE. The patient had a history of having a DVT in 2018. She also experienced similar bleeding patterns at that time. The patient underwent an endometrial biopsy at that time, which was normal. Discussed the options with the patient including expectant medical and surgical management. I explained that potentially within 4 years, all of her bleeding issues may stop just with menopause alone. Ultimately discussed surgical options between ablation and hysterectomy. Explained that there may be limitations of ablation due to her uterine size and her history of fibroids, although the risk of doing the ablation is much lower and would allow us the ability to continue her blood thinners throughout. Ultimately the decision was made for an ablation. DESCRIPTION OF PROCEDURE: The patient was taken to the operating room where LMA was placed without difficulty. The patient was prepped and draped in normal sterile fashion. A posterior weighted speculum was then placed into the vagina and a right angle retractor was used to visualize the cervix. The anterior lip of the cervix was then grasped with a single tooth tenaculum. The sound was then placed. Due to the anteverted nature of her uterus, the posterior weighted speculum had to be removed to get the proper angle. The uterine sound measured the cervix to be 6 cm and the uterine sound was then placed all the way to the fundus and was found to be 16 cm, making her endometrial cavity 10 cm. Once the sound was removed, the cervix was dilated to allow for the hysteroscope to be placed. Again due to the angle, the posterior weighted speculum had to be removed to reach the fundus. Visualization of the endometrium revealed a long cavity, but the endometrium appeared to benign. At that point, curetting was performed gently. The specimen was sent to pathology. Once completed, the NovaSure device was then placed into the endometrial cavity, the width was found to be 4.7 cm. A length of 6.5 cm and a width of 4.7 cm was entered into the tower. At that point, the NovaSure device was activated. During the assessment of the cavity, the device did not pass, so there were concerns that leakage was occurring. At that point, a second single tooth tenaculum was then put on the posterior lip of the cervix. This was then used to create a seal. The device was activated again and again during the cavity assessment, there was a failure. Next, a 4 x 4 with gel was placed to achieve a better seal. This did not achieve success either. At that point, the NovaSure was replaced out. With the first attempt, the cavity assessment failed, but with the second attempt, the NovaSure device activated. Once activated and complete, the NovaSure device was removed. Placement of the hysteroscope back into the endometrial cavity revealed good ablation of the lower uterine segment, but did not appear to have much effect on the uterine fundus. Approximately 25% of the endometrial cavity seemed to be ablated. At that point, the hysteroscope was removed as well as the tenaculums. Minimal bleeding was noted at the tenaculum site. Good hemostasis was noted. The patient was then brought to the recovery room in stable condition. CLARK PEREIRA MD DR: ZACHARIAH/michael JOB#: [id number] / [id number] ROSIE
--- NOTE | 2020-11-30 12:09 | PATHOLOGY ---
[facility] Accession Number: [id number] . 01 Material submitted: . endometrium - ENDOMETRIAL CURETTINGS . 01 Clinical history: . HEAVY BLEEDING D/C HEAVY BLEEDING . 02 Diagnosis: Endometrial curettings: - Minute segments of superficial squamous epithelium present - tissue insufficient for diagnosis. (JPM:flight operations inspector; 11/29/2020) MBR 11/29/2020 1646 Local . 02 Comment: Sections of the endometrial curettings reveal small segments of benign superficial squamous epithelium. There is no endometrial tissue present. As such, the specimen is insufficient for diagnosis. (JPM:flight operations inspector; 11/29/2020) . 02 Electronically signed: . Markell Dean MD, Pathologist NPI- [id number] . 01 Gross description: . Received in formalin labeled "Lilian Cm, endometrial curettings" is a 0.6 x 0.4 x 0.1 cm aggregate of possible minute red-brown soft tissue fragments. The specimen is submitted entirely in A1. This specimen may not survive processing. ([facility]; 11/27/2020) GZA/GZA 11/29/2020 1645 Local . 02 Pathologist provided ICD-10: N93.9 . 02 CPT . 580470 Specimen Comment: A courtesy copy of this report has been sent to [phone], [phone] Specimen Comment: [id number] Specimen Comment: Report sent to / Performed at: 01 [facility] [address], [place], [place] [id number] MD Sadi Licona MD Phone: [phone] Performed at: 02 [facility] [address] [place], [place] [id number] MD Markell Dean MD Phone: [phone]
== END 2020-11-26 13:41 | disposition home or self-care (01) ==
LOC: SURG 09:49
PROVIDERS: ATTEND Obstetrics & Gynecology
DX: N95.0 Postmenopausal bleeding (principal); N93.9 Abnormal uterine and vaginal bleeding, unspecified; K21.9 Gastro-esophageal reflux disease without esophagitis; F41.9 Anxiety disorder, unspecified; Z86.711 Personal history of pulmonary embolism; Z86.718 Personal history of other venous thrombosis and embolism; Z98.51 Tubal ligation status; Z87.891 Personal history of nicotine dependence; Z98.890 Other specified postprocedural states; Z79.899 Other long term (current) drug therapy; Z72.89 Other problems related to lifestyle; Z91.013 Allergy to seafood; Z88.8 Allergy status to other drugs, medicaments and biological substances
CPT/HCPCS: 36415; 58563; 81025; 85025; 85610; 85730; 86850; 86900; 86901; A4930; J1100; J2405; J2704; J3010; 88305

== ENCOUNTER 2020-11-28 06:05 | Inpatient (IN) | payer BC ==
[~2020-11-28] VITALS: Ht 157.5 cm; Wt 66.3 kg
[~2020-11-28 06:05] MED LIST changes: +IBUP-1060 PO; +OXYC1TAB15 PO
[2020-11-28] MEDS ORDERED: IV NORMAL SALINE 1000ML BAG 1,000 ML IV ONE ×2 (06:30→09:00)
[2020-11-28] MEDS ORDERED: ACETAMINOPHEN 500 MG TABLET PO ONE (06:30)
[2020-11-28] MEDS ORDERED: fentaNYL PF VIAL 100 MCG/2 ML VIAL IVP ONE (06:30)
[2020-11-28 06:44] LABS: BASO % 0 % (0-3); EOS % 0 % (0-3); HEMATOCRIT 32.4 % (36.0-47.0); HEMOGLOBIN 10.1 g/dL (12.0-15.5); LYMPH # 0.4 x10^3/uL (1.0-4.8); LYMPH % 3 % (24-48); MEAN CORPUSCULAR HEMOGLOBIN 27 pg (25-35); MEAN CORPUSCULAR HGB CONC 31 g/dL (31-37); MEAN CORPUSCULAR VOLUME 87 fL (79-100); MONO # 0.6 x10^3/uL (0.0-1.1); MONO % 4 % (0-9); NEUT # 13.1 x10^3/uL (1.8-7.7); NEUT % 93 % (31-73); PLATELET COUNT 385 x10^3/uL (140-400); RED BLOOD COUNT 3.73 x10^6/uL (3.50-5.40); WHITE BLOOD COUNT 14.2 x10^3/uL (4.0-11.0)
[2020-11-28 06:58] LABS: CALCIUM 8.2 mg/dL (8.5-10.1); CREATININE 0.8 mg/dL (0.6-1.0); POTASSIUM 3.3 mmol/L (3.5-5.1)
[2020-11-28 07:13] LABS: ALBUMIN 3.6 g/dL (3.4-5.0); ALBUMIN/GLOBULIN RATIO 0.9 (1.0-1.7); MAGNESIUM 1.4 mg/dL (1.8-2.4); TOTAL BILIRUBIN 0.6 mg/dL (0.2-1.0); TOTAL PROTEIN 7.8 g/dL (6.4-8.2)
[2020-11-28] MEDS ORDERED: CONTRAST GIVEN. MC PRN (07:30)
[2020-11-28] MEDS ORDERED: IOHEXOL 350 MG/ML 100 ML VIAL. IV ONE (07:30)
--- NOTE | 2020-11-28 07:48 | RAD ---
CT chest with contrast, CT abdomen pelvis with contrast. HISTORY: Postop fever, history of pulmonary emboli, abdominal pain postuterine ablation, hysteroscopy CT CHEST: CT scan of the chest was done using 100 mL Omnipaque 350 contrast. Comparison is made with an old candy dy from July 2018. Thyroid is homogeneous. There is no mediastinal adenopathy. There is no pleura l effusion. There is mild linear atelectasis in the lung bases without other infiltrates. There is no pulmonary embolus. IMPRESSION: 1. Mild atelectasis without other infiltrates.. 2. Negative for a pulmonary embolus. End impression CT abdomen pelvis CT scan the abdomen pelvis was done following CT chest with contrast. Liver is normal in appearance. There is no calcified gallstones or gallbladder wall thickening. Spleen and adrenal glands are normal . Pancreas is normal. Kidneys enhance normally without definitive evidence of pyelonephritis. There i s moderate bilateral hydronephrosis. There is no bowel obstruction. Patient has a very large uterus w ith multiple lesions likely uterine leiomyomas. Largest mass is in the posterior uterus measuring 7.7 x 8.6 x 9 cm. There is fluid in the endometrial cavity which is nonspecific. There is no bowel obstr uction. There is no free air or ascites. Appendix is not definitively identified but there is not CT evidence of an acute appendicitis. IMPRESSION: 1. Very large uterus with multiple lesions likely uterine leiomyomas although a sarcoma would be diff icult to exclude especially the largest lesion measuring 9 cm. 2. Bilateral hydronephrosis probably related to the very large uterus, a ureteral calculus is not dipak ntified. PQRS Compliance Statement: One or more of the following individualized dose reduction techniques were utilized for this examinat ion: 1. Automated exposure control 2. Adjustment of the mA and/or kV according to patient size 3. Use of iterative reconstruction technique Electronically signed by: Vinnie Rey MD (11/28/2020 7:46 AM) [id number]
--- NOTE | 2020-11-28 07:49 | PHYS DOC ---
Past Medical History Past Medical History: Anemia, DVT, Other Additional Past Medical Histor: uterine fibroid,PE X 2 Past Surgical History: , Other Additional Past Surgical Histo: UTERINE FIBROIDS REMOVED Smoking Status: Former Smoker Additional Information: Stopped smoking 3-4 months ago Alcohol Use: Occasionally Drug Use: None General Adult EDM: Chief Complaint: ABDOMINAL PAIN HPI: HPI: Patient is a 45 year old female with history of PE, anemia, and uterine fibroids who presents to [facility] ED with complaints of abdominal pain s/p hysteroscopy with D&C on November 26, 2020. Patient had surgery this past Sunday, and has since had constant sharp abdominal pain. The pain is primarily in the mid abdominal region, and does not radiate to other quadrants. She was given ibuprofen and percocet for pain management, but states that the meds are not helping. She states that her abdomen feels like its "full of pus". She has not able to eat, and has only attempted to keep water down to no avail. She also reports fever and chills. She denies any diarrhea or constipation, but has not had a bowel movement since Sunday. She rates the pain as a 7 out 10. She reports increased urinary frequency and a headache with her symptoms. Patient is currently on xarelto, which she is taking due to her history of PE. Review of Systems: Review of Systems: Constitutional: Reports fever and chills Eyes: Denies redness or eye pain HENT: Denies nasal congestion or sore throat Respiratory: Denies cough or shortness of breath Cardiovascular: Reports slight chest pain, denies palpitations GI: Reports abdominal pain and nausea, denies vomiting : Denies dysuria or hematuria Musculoskeletal: Denies back pain or joint pain Integument: Denies rash or skin lesions Neurologic: Reports headache, denies focal weakness or sensory changes Complete systems were reviewed and found to be within normal limits, except as documented in this note. Heart Score: C/O Chest Pain: N/A Family History: Family History: No pertinent family history Current Medications: Current Medications Medications (Trade) Dose Ordered Sig/Michelle Start Time Stop Time Status Last Admin Dose Admin Acetaminophen (Tylenol) 500 mg 1X ONCE 11/28/20 06:30 11/28/20 06:31 DC Fentanyl Citrate (Fentanyl 2ml Vial) 50 mcg 1X ONCE 11/28/20 06:30 11/28/20 06:31 DC Sodium Chloride 1,000 ml @ 1,000 mls/hr 1X ONCE 11/28/20 06:30 11/28/20 07:29 Allergies: Allergies: Allergies Coded Allergies Type Severity Reaction Last Updated Verified morphine Allergy Intermediate Nausea and Vomiting 11/26/20 Yes shellfish derived Allergy Intermediate Swelling 11/26/20 Yes Physical Exam: PE: Constitutional: Well developed, well nourished, in acute distress HENT: Normocephalic, atraumatic Eyes: PERRL, EOMI, conjunctiva normal, no discharge Neck: Normal range of motion, no tenderness, supple Lungs & Thorax: No respiratory distress, equal chest rise and fall Abdomen: Soft, extreme tenderness to palpation in mid abdominal region Skin: Warm, dry, no erythema, no rash Back: No tenderness, no CVA tenderness Extremities: No tenderness, ROM intact, no edema Neurologic: Alert and oriented X 3, normal motor function, normal sensory function, no focal deficits noted Psychologic: Affect normal, judgment normal Current Patient Data: Labs: Laboratory Tests Test 11/28/20 06:28 White Blood Count 14.2 x10^3/uL (4.0-11.0) H Red Blood Count 3.73 x10^6/uL (3.50-5.40) Hemoglobin 10.1 g/dL (12.0-15.5) L Hematocrit 32.4 % (36.0-47.0) L Mean Corpuscular Volume 87 fL (79-100) Mean Corpuscular Hemoglobin 27 pg (25-35) Mean Corpuscular Hemoglobin Concent 31 g/dL (31-37) Red Cell Distribution Width 24.0 % (11.5-14.5) H Platelet Count 385 x10^3/uL (140-400) Neutrophils (%) (Auto) 93 % (31-73) H Lymphocytes (%) (Auto) 3 % (24-48) L Monocytes (%) (Auto) 4 % (0-9) Eosinophils (%) (Auto) 0 % (0-3) Basophils (%) (Auto) 0 % (0-3) Neutrophils # (Auto) 13.1 x10^3/uL (1.8-7.7) H Lymphocytes # (Auto) 0.4 x10^3/uL (1.0-4.8) L Monocytes # (Auto) 0.6 x10^3/uL (0.0-1.1) Eosinophils # (Auto) 0.0 x10^3/uL (0.0-0.7) Basophils # (Auto) 0.0 x10^3/uL (0.0-0.2) Platelet Estimate Pending Laboratory Tests 11/28/20 06:28 Vital Signs: Vital Signs Date Time Temp Pulse Resp B/P (MAP) Pulse Ox O2 Delivery O2 Flow Rate FiO2 11/28/20 06:20 103.0 118 20 136/77 (96) 100 Room Air 103.0 EKG: EKG: Not obtained Radiology/Procedures: Radiology/Procedures: PROCEDURE: CT ANGIO CHEST W ABD PEL W/ CT chest with contrast, CT abdomen pelvis with contrast. HISTORY: Postop fever, history of pulmonary emboli, abdominal pain postuterine ablation, hysteroscopy CT CHEST: CT scan of the chest was done using 100 mL Omnipaque 350 contrast. Comparison is made with an old study from July 2018. Thyroid is homogeneous. There is no mediastinal adenopathy. There is no pleural effusion. There is mild linear atelectasis in the lung bases without other infiltrates. There is no pulmonary embolus. IMPRESSION: 1. Mild atelectasis without other infiltrates.. 2. Negative for a pulmonary embolus. End impression CT abdomen pelvis CT scan the abdomen pelvis was done following CT chest with contrast. Liver is normal in appearance. There is no calcified gallstones or gallbladder wall thickening. Spleen and adrenal glands are normal. Pancreas is normal. Kidneys enhance normally without definitive evidence of pyelonephritis. There is moderate bilateral hydronephrosis. There is no bowel obstruction. Patient has a very large uterus with multiple lesions likely uterine leiomyomas. Largest mass is in the posterior uterus measuring 7.7 x 8.6 x 9 cm. There is fluid in the endometrial cavity which is nonspecific. There is no bowel obstruction. There is no free air or ascites. Appendix is not definitively identified but there is not CT evidence of an acute appendicitis. IMPRESSION: 1. Very large uterus with multiple lesions likely uterine leiomyomas although a sarcoma would be difficult to exclude especially the largest lesion measuring 9 cm. 2. Bilateral hydronephrosis probably related to the very large uterus, a ureteral calculus is not identified. PQRS Compliance Statement: One or more of the following individualized dose reduction techniques were utilized for this examination: 1. Automated exposure control 2. Adjustment of the mA and/or kV according to patient size 3. Use of iterative reconstruction technique Electronically signed by: Vinnie Rey MD (11/28/2020 7:46 AM) [id number] Course & Med Decision Making: Course & Med Decision Making Patient is a 45 year old female with history of PE, anemia, and uterine fibroids who presents to [facility] ED with complaints of abdominal pain s/p hysteroscopy with D&C on November 26, 2020. CBC reveals elevated WBC (14.2) and high neutrophil counts. CMP reveals low sodium, potassium, and calcium. Lactic acid is not elevated. NS IV boluses 2000 mL, magnesium repletion, potassium repletion, and fentanyl have been given in ED. Urine Hcg is negative. UA does not reveal strong evidence of UTI. CT angio chest reveals mild atelectasis without other infiltrates and is negative for a pulmonary embolus. CT abdomen pelvis with contrast reveals very large uterus with multiple lesions likely uterine leiomyomas although a sarcoma would be difficult to exclude especially the largest lesion measuring 9 cm and bilateral hydronephrosis probably related to the very large uterus, a ureteral calculus is not identified. Patient requiring admission for further evaluation and treatment. Discussed with Dr. Neely who is in agreement with admission, and is requesting doxycycline as there is possible chance of infection and surgery prep was performed differently due to patient allergies. Discussed findings and plan with patient, who acknowledges understanding and agreement. Pertinent Labs and Imaging studies reviewed. (See chart for details) Dragon Disclaimer: Essence Disclaimer: This electronic medical record was generated, in whole or in part, using a voice recognition dictation system. Departure Departure Impression: Primary Impression: Postoperative fever Additional Impression: Intractable abdominal pain Disposition: ADMITTED INPT THIS HOSP ([facility] ([facility])) Condition: STABLE Referrals: SKYLAR BENZ MD (PCP) ISRAEL KING DO Nov 28, 2020 07:49
[2020-11-28 08:06] LABS: BILIRUBIN,URINE NEGATIVE (NEG); CLARITY,URINE CLEAR; COLOR,URINE YELLOW; NITRITE,URINE NEGATIVE (NEG); PROTEIN,URINE NEGATIVE (NEG-TRACE)
[2020-11-28] MEDS ORDERED: POTASSIUM CHLORIDE 20 MEQ TABLET.ER. PO ONE (08:30)
[2020-11-28] MEDS ORDERED: MAGNESIUM CHLORIDE ER 64 MG TABLET.ER PO ONE (08:30)
[2020-11-28] MEDS ORDERED: fentaNYL PF VIAL 100 MCG/2 ML VIAL IV ONE (08:30)
[2020-11-28 08:34] LABS: BACTERIA,URINE FEW /HPF (0-FEW)
[2020-11-28 09:09] LABS: % BANDS 11 % (0-9); % EOS 1 % (0-5); % LYMPHS 3 % (24-48); % MONOS 3 % (0-10); % SEGS 82 % (35-66)
[2020-11-28 09:11] LABS: ANISOCYTOSIS MOD; HYPOCHROMIA SLIGHT; PLT ESTIMATE ADEQUATE (ADEQUATE); POIKILOCYTOSIS SLIGHT
[2020-11-28] MEDS ORDERED: DOXYCYCLINE HYCLATE 100 MG in IV DEXTROSE 5% 100ML 100 ML IV ONE (09:15)
[2020-11-28] MEDS ORDERED: ONDANSETRON PF 4 MG/2 ML VIAL. IV PRN (09:30)
[2020-11-28] MEDS ORDERED: fentaNYL PF VIAL 100 MCG/2 ML VIAL IV PRN (09:30)
[2020-11-28] MEDS ORDERED: POTASSIUM CL 20MEQ D5-0.45NACL 1,000 ML IV ONE (09:30)
[2020-11-28] MEDS ORDERED: HYDROmorphone 2 MG/ML VIAL IVP ONE (10:15)
[2020-11-28] MEDS ORDERED: METOCLOPRAMIDE HCL 10 MG/2 ML VIAL. IVP ONE (10:30)
[2020-11-28] MEDS: ACETAMINOPHEN 325 MG TABLET. PO PRN ×3 (12:00→22:42)
--- NOTE | 2020-11-28 12:42 | PDOC1 ---
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 The pt states that both began last night. The pt is in her LLQ. She has had no bleeding since the surgery. Discussed briefly the surgery with the pt and how endometrium not completely ablated. Also discussed how betadine not used due to shellfish allergy. PMH: DVT in right lower extremity 2017, PE's 10/17, Anemia. PSH: Myomectomy - Uterine fibroid removed 1996, BTL, C/S x 2, H/S, D&C, and ablation. Meds: Xarelto, Iron All: Morphine OBHx: TC/S x 2, AB x 1. 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, rare EtOH FH: metastatic breast cancer, DM, HTN Past Medical History: Pulmonary: Pulmonary embolus, Other GI: GERD, Gastritis Heme/Onc: Anemia NOS, Iron deficiency Anemia, Other Psych: Anxiety Past Surgical History: Social History: ALCOHOL: occassional Drugs: Marijuana Medications: Meds: Current Medications Medications (Trade) Dose Ordered Sig/Michelle Route PRN Reason Start Time Stop Time Status Last Admin Dose Admin Sodium Chloride 1,000 ml @ 1,000 mls/hr 1X ONCE IV 11/28/20 06:30 11/28/20 07:29 DC 11/28/20 06:58 Fentanyl Citrate (Fentanyl 2ml Vial) 50 mcg 1X ONCE IVP 11/28/20 06:30 11/28/20 06:31 DC 11/28/20 07:01 Acetaminophen (Tylenol) 500 mg 1X ONCE PO 11/28/20 06:30 11/28/20 06:31 DC 11/28/20 06:59 Iohexol (Omnipaque 350 Mg/ml) 100 ml 1X ONCE IV 11/28/20 07:30 11/28/20 07:31 DC 11/28/20 07:26 Potassium Chloride (Klor-Con) 40 meq 1X ONCE PO 11/28/20 08:30 11/28/20 08:31 DC 11/28/20 08:56 Magnesium Chloride (Mag Delay) 64 mg 1X ONCE PO 11/28/20 08:30 11/28/20 08:31 DC 11/28/20 08:56 Fentanyl Citrate (Fentanyl 2ml Vial) 50 mcg 1X ONCE IV 11/28/20 08:30 11/28/20 08:31 DC 11/28/20 08:58 Sodium Chloride 1,000 ml @ 1,000 mls/hr 1X ONCE IV 11/28/20 09:00 11/28/20 09:59 DC 11/28/20 09:01 Doxycycline Hyclate 100 mg/ Dextrose 100 ml @ 50 mls/hr 1X ONCE IV 11/28/20 09:15 11/28/20 11:14 DC 11/28/20 10:24 Ondansetron HCl (Zofran) 4 mg PRN Q8HRS PRN IV NAUSEA/VOMITING 11/28/20 09:30 11/29/20 09:29 11/28/20 10:19 Fentanyl Citrate (Fentanyl 2ml Vial) 50 mcg PRN Q2HR PRN IV PAIN 11/28/20 09:30 11/28/20 12:01 Acetaminophen (Tylenol) 650 mg PRN Q4HRS PRN PO FEVER > 100.3'F 11/28/20 09:30 11/29/20 09:29 11/28/20 12:00 Potassium Chloride/Dextrose/ Sod Cl 1,000 ml @ 100 mls/hr Q10H ONCE IV 11/28/20 09:30 11/28/20 19:29 11/28/20 10:14 Hydromorphone HCl (Dilaudid) 0.5 mg 1X ONCE IVP 11/28/20 10:15 11/28/20 10:16 DC 11/28/20 10:20 Metoclopramide HCl (Reglan Vial) 10 mg 1X ONCE IVP 11/28/20 10:30 11/28/20 10:31 DC 11/28/20 10:22 Allergies: Coded Allergies: shellfish derived (Verified Allergy, Intermediate, Swelling, 11/26/20) morphine (Verified Adverse Reaction, Intermediate, Nausea and Vomiting, 11/28/20) tolerates Dilaudid Physical Exam: Vital Signs: Vital Signs Date Time Temp Pulse Resp B/P (MAP) Pulse Ox O2 Delivery O2 Flow Rate FiO2 11/28/20 09:01 101.5 118 20 120/78 (92) 99 Room Air 101.5 PE: GENERAL: No apparent distress. Alert and oriented. HEENT: Head normocephalic, atraumatic. NECK: Supple LUNGS: Clear to auscultation. HEART: RRR, S1, S2 present, pulses intact ABDOMEN: Soft, positive bowel sounds. EXTREMITIES: No cyanosis or edema. NEUROLOGIC: Normal speech, normal tone PSYCHIATRIC: Normal affect, normal mood. SKIN: No ulceration. Labs: Laboratory Tests Test 11/28/20 06:28 11/28/20 07:44 11/28/20 07:56 White Blood Count 14.2 x10^3/uL (4.0-11.0) H Red Blood Count 3.73 x10^6/uL (3.50-5.40) Hemoglobin 10.1 g/dL (12.0-15.5) L Hematocrit 32.4 % (36.0-47.0) L Mean Corpuscular Volume 87 fL (79-100) Mean Corpuscular Hemoglobin 27 pg (25-35) Mean Corpuscular Hemoglobin Concent 31 g/dL (31-37) Red Cell Distribution Width 24.0 % (11.5-14.5) H Platelet Count 385 x10^3/uL (140-400) Neutrophils (%) (Auto) 93 % (31-73) H Lymphocytes (%) (Auto) 3 % (24-48) L Monocytes (%) (Auto) 4 % (0-9) Eosinophils (%) (Auto) 0 % (0-3) Basophils (%) (Auto) 0 % (0-3) Neutrophils # (Auto) 13.1 x10^3/uL (1.8-7.7) H Lymphocytes # (Auto) 0.4 x10^3/uL (1.0-4.8) L Monocytes # (Auto) 0.6 x10^3/uL (0.0-1.1) Eosinophils # (Auto) 0.0 x10^3/uL (0.0-0.7) Basophils # (Auto) 0.0 x10^3/uL (0.0-0.2) Segmented Neutrophils % 82 % (35-66) H Band Neutrophils % 11 % (0-9) H Lymphocytes % 3 % (24-48) L Monocytes % 3 % (0-10) Eosinophils % 1 % (0-5) Platelet Estimate Adequate (ADEQUATE) Hypochromasia Slight Poikilocytosis Slight Anisocytosis Mod Sodium Level 134 mmol/L (136-145) L Potassium Level 3.3 mmol/L (3.5-5.1) L Chloride Level 101 mmol/L (98-107) Carbon Dioxide Level 23 mmol/L (21-32) Anion Gap 10 (6-14) Blood Urea Nitrogen 5 mg/dL (7-20) L Creatinine 0.8 mg/dL (0.6-1.0) Estimated GFR (Cockcroft-Gault) 93.0 BUN/Creatinine Ratio 6 (6-20) Glucose Level 100 mg/dL (70-99) H Lactic Acid Level 1.0 mmol/L (0.4-2.0) Calcium Level 8.2 mg/dL (8.5-10.1) L Magnesium Level 1.4 mg/dL (1.8-2.4) L Total Bilirubin 0.6 mg/dL (0.2-1.0) Aspartate Amino Transferase (AST) 17 U/L (15-37) Alanine Aminotransferase (ALT) 15 U/L (14-59) Alkaline Phosphatase 67 U/L (46-116) Total Protein 7.8 g/dL (6.4-8.2) Albumin 3.6 g/dL (3.4-5.0) Albumin/Globulin Ratio 0.9 (1.0-1.7) L Urine Collection Type Unknown Urine Color Yellow Urine Clarity Clear Urine pH 7.0 (<5.0-8.0) Urine Specific [place] >=1.030 (1.000-1.030) Urine Protein Negative mg/dL (NEG-TRACE) Urine Glucose (UA) Negative mg/dL (NEG) Urine Ketones (Stick) >=80 mg/dL (NEG) Urine Blood Small (NEG) Urine Nitrite Negative (NEG) Urine Bilirubin Negative (NEG) Urine Urobilinogen Dipstick 1.0 mg/dL (0.2 mg/dL) Urine Leukocyte Esterase Small (NEG) Urine RBC 1-2 /HPF (0-2) Urine WBC 1-4 /HPF (0-4) Urine Squamous Epithelial Cells Few /LPF Urine Bacteria Few /HPF (0-FEW) Urine Mucus Slight /LPF POC Urine HCG, Qualitative Hcg negative (Negative) Laboratory Tests 4/4/21 06:28 Laboratory Tests 11/28/20 06:28 Laboratory Tests 11/28/20 06:28 Assessment & Plan: A/P 45y s/p H/S, D&C, and ablation admitted for abd pain and fever 1.) Abd pain/fever fever at home. Temp in the ER 103. W/u neg. CT chest/abd/pelvis neg (no PE, Bilateral hydronephrosis). WBC 14.2 (with left shift 93%). Lactic acid 1.0. Since pt had shellfish allergy she was not prepped with Betadine. Since no source of infection found, will assume it may be from ascending pelvic infection from vagina. Will start Doxy 2.) Bilateral hydronephrosis moderate, Cr 0.8 3.) Anemia 10.1, stable from preop labs (11/26) 10.2 4.) Heavy bleeding - 2/2 Xarelto. Minimal bleeding since surgery. 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 Can potentially be on the med for the rest of her life. 8.) Prev C/S x 2 9.) Morphine allergy 10.) Contraception - BTL ISRAEL PEREIRA MD Nov 28, 2020 12:42
[2020-11-28 12:51] VITALS: BP 113/63
[2020-11-28 15:09] VITALS: BP 108/60
[2020-11-28 19:28] VITALS: BP 109/57
[2020-11-28] MEDS: DOXYCYCLINE HYCLATE 100 MG TABLET PO SCH (20:19)
[2020-11-28 22:43] VITALS: BP 110/62
[2020-11-29 03:10] VITALS: BP 110/56
[2020-11-29 07:45] VITALS: BP 124/71
[2020-11-29 08:36] LABS: BASO # 0.1 x10^3/uL (0.0-0.2); BASO % 1 % (0-3); EOS % 0 % (0-3); HEMATOCRIT 32.8 % (36.0-47.0); HEMOGLOBIN 10.4 g/dL (12.0-15.5); LYMPH # 0.3 x10^3/uL (1.0-4.8); LYMPH % 3 % (24-48); MEAN CORPUSCULAR HEMOGLOBIN 27 pg (25-35); MEAN CORPUSCULAR HGB CONC 32 g/dL (31-37); MEAN CORPUSCULAR VOLUME 86 fL (79-100); MONO # 0.5 x10^3/uL (0.0-1.1); MONO % 5 % (0-9); NEUT % 91 % (31-73); PLATELET COUNT 318 x10^3/uL (140-400); RED BLOOD COUNT 3.81 x10^6/uL (3.50-5.40)
[2020-11-29] MEDS: ACETAMINOPHEN 325 MG TABLET. PO PRN ×2 (09:39→23:35)
[2020-11-29] MEDS: DOXYCYCLINE HYCLATE 100 MG TABLET PO SCH (09:39)
--- NOTE | 2020-11-29 09:55 | PDOC ---
Infectious Disease Note Vital Sign Vital Signs Vital Signs Date Time Temp Pulse Resp B/P (MAP) Pulse Ox O2 Delivery O2 Flow Rate FiO2 11/29/20 07:45 99.8 110 16 124/71 (88) 100 Room Air 99.8 11/28/20 20:00 96.0 Labs Lab Laboratory Tests Test 11/29/20 08:09 White Blood Count 11.0 x10^3/uL (4.0-11.0) Red Blood Count 3.81 x10^6/uL (3.50-5.40) Hemoglobin 10.4 g/dL (12.0-15.5) Hematocrit 32.8 % (36.0-47.0) Mean Corpuscular Volume 86 fL (79-100) Mean Corpuscular Hemoglobin 27 pg (25-35) Mean Corpuscular Hemoglobin Concent 32 g/dL (31-37) Red Cell Distribution Width 24.0 % (11.5-14.5) Platelet Count 318 x10^3/uL (140-400) Neutrophils (%) (Auto) 91 % (31-73) Lymphocytes (%) (Auto) 3 % (24-48) Monocytes (%) (Auto) 5 % (0-9) Eosinophils (%) (Auto) 0 % (0-3) Basophils (%) (Auto) 1 % (0-3) Neutrophils # (Auto) 10.0 x10^3/uL (1.8-7.7) Lymphocytes # (Auto) 0.3 x10^3/uL (1.0-4.8) Monocytes # (Auto) 0.5 x10^3/uL (0.0-1.1) Eosinophils # (Auto) 0.0 x10^3/uL (0.0-0.7) Basophils # (Auto) 0.1 x10^3/uL (0.0-0.2) Micro Microbiology 11/28/20 Blood Culture - Final, Complete 11/28/20 Urine Culture - Final, Complete Objective Assessment pt seen, consult dictated Plan Plan of Care / ELISEO KAPLAN MD Nov 29, 2020 09:55
[2020-11-29] MEDS ORDERED: cefTRIAXone IV Push 2 GM VIAL. IVP SCH (10:00)
[2020-11-29] MEDS ORDERED: VANCOMYCIN 1 GM in IV NORMAL SALINE 250ML 250 ML IV SCH ×2 (10:00→23:00)
[2020-11-29] MEDS ORDERED: VANCOMYCIN PER PHARMACY MC PRN (10:30)
[2020-11-29] MEDS ORDERED: VANCOMYCIN 1.5 GM in IV NORMAL SALINE 500ML BAG 500 ML IV ONE (11:00)
[2020-11-29 11:06] VITALS: BP 120/72
--- NOTE | 2020-11-29 11:41 | CONS ---
DATE OF CONSULTATION: 11/29/2020 REQUESTING PHYSICIAN: Clark Neely MD. REASON FOR CONSULTATION: Fever and blood culture positive. HISTORY OF PRESENT ILLNESS: This is a 45-year-old -[place] female who had undergone D and C, status post hysteroscopy on 11/26/2020, last Sunday. The patient was discharged home. The patient was fine until Sunday, she started having fever and chills, and abdominal pain, hence she came in. The patient has been admitted. The patient is started on doxycycline and white count was 14,000 and now blood cultures are 4/4 bottles positive with Gram-positive cocci in pairs and chains that will give you some indication. The patient is still running fever up to 101.3 last night. The patient denies any nausea, vomiting. She did have some diarrhea. Does have still abdominal pain, no urinary symptoms other than some frequency. The patient denies any headache, chest pain. PAST MEDICAL HISTORY: She has had history of DVT, gastroesophageal reflux disease, fibroid, in the past, D and C as I mentioned earlier, last Sunday, anxiety disorder, and panic disorder. SOCIAL HISTORY: Negative for smoking. She quit in August, occasional alcohol use, no drug use. ALLERGIES: SHE IS LISTED ALLERGIC TO MORPHINE. ROS : as per HPI, rest neg. PHYSICAL EXAMINATION: HEENT: NAD. NECK: Supple, no JVP, no lymphadenopathy. LUNGS: Clear. HEART: S1, S2 regular. ABDOMEN: Soft. Left lower quadrant tenderness present, no rebound or guarding. EXTREMITIES: No edema, cyanosis. SKIN: Unremarkable. NEUROLOGIC: The patient is alert, awake and appropriate. No focal neurologic deficit. LABORATORY DATA: White count is down to 11,000. BUN and creatinine are normal. Liver functions are normal. Urinalysis did not reveal any signs of infection. Blood culture is 4/4 bottles positive with Gram-positive cocci in pairs and chains. CT of the abdomen and pelvis was done earlier, which showed very large uterus with multiple lesions, likely uterine leiomyoma, although sarcoma cannot be ruled out. Bilateral hydronephrosis, probably related to the very large uterus. No ureteral calculus seen. IMPRESSION: 1. Fever. 2. Leukocytosis. 3. Blood culture 4/4 gram-positive cocci in pairs and chains either strep or enterococcus. 4. Status post hysteroscopy and D and C on 11/26/2020. RECOMMENDATION: Discontinue doxycycline. Repeat blood cultures. Start vancomycin and Rocephin as soon as identification is known, we will scale down supportive care and we will have further recommendation pending the final results. Thank you very much, Dr. Neely, for giving me the opportunity to participate in this patient's care. ELISEO KAPLAN MD DR: AMINATA/michael JOB#: [id number] / [id number] ROSIE
--- NOTE | 2020-11-29 12:15 | NUR ---
SS following for discharge planning. SS reviewed pt chart and discussed with pt RN. Pt is from home with spouse and is currently on room air. ID consulted for positive blood cultures. Pt on IV Rocephin and IV Vancomycin. Discharge plan is to home when medically ready. SS will continue to follow for discharge planning.
--- NOTE | 2020-11-29 12:56 | NUR ---
Pharmacy Vancomycin Dosing Note S:Consulted to monitor and dose vancomycin started 11/29/20. O:ETHAN GRIFFITH is a 45 year old F with Bacteremia Height: 5 feet, 2 inches Weight: 65.8 kg [place] Body Weight: 50.10 Adjusted Body Weight: 56.38 Dosing Weight: Actual Other Antibiotics: Ceftriaxone 2g IV q24h LABS: Last BUN: 5 Last Creatinine: 0.8 Creatinine Clearance: 77.4 mL/min Last WBC: 11 Last Procalcitonin: Tmax (past 24 hours): 101.3 Microbiology: Blood: GPC 4/4 bottles and 2/4 bottles (2 sets drawn) I/O: 430/6 voids Last dose given 11/29/20 at 1048 Vancomycin Dosing: Loading Dose: 1500 mg x1 Dosing Weight: Actual Target Trough: 15-20 A: Based on: weight and renal function P: 1. Begin Vancomycin 1000 mg IV q12h 2. Follow up Trough level on 11/30/20 at 2230 3. Pharmacy will continue to monitor, follow and adjust therapy as needed. Марина Irvin [facility], 11/29/20 [id number]
--- NOTE | 2020-11-29 13:10 | PDOC ---
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4 g/dL (12.0-15.5) L Hematocrit 32.8 % (36.0-47.0) L Mean Corpuscular Volume 86 fL (79-100) Mean Corpuscular Hemoglobin 27 pg (25-35) Mean Corpuscular Hemoglobin Concent 32 g/dL (31-37) Red Cell Distribution Width 24.0 % (11.5-14.5) H Platelet Count 318 x10^3/uL (140-400) Neutrophils (%) (Auto) 91 % (31-73) H Lymphocytes (%) (Auto) 3 % (24-48) L Monocytes (%) (Auto) 5 % (0-9) Eosinophils (%) (Auto) 0 % (0-3) Basophils (%) (Auto) 1 % (0-3) Neutrophils # (Auto) 10.0 x10^3/uL (1.8-7.7) H Lymphocytes # (Auto) 0.3 x10^3/uL (1.0-4.8) L Monocytes # (Auto) 0.5 x10^3/uL (0.0-1.1) Eosinophils # (Auto) 0.0 x10^3/uL (0.0-0.7) Basophils # (Auto) 0.1 x10^3/uL (0.0-0.2) Laboratory Tests 11/29/20 08:09 Laboratory Tests 11/29/20 08:09 Physical Exam: GENERAL: No apparent distress. Alert and oriented. HEENT: Head normocephalic, atraumatic. NECK: Supple LUNGS: Clear to auscultation. HEART: RRR, S1, S2 present, pulses intact ABDOMEN: Soft, positive bowel sounds. EXTREMITIES: No cyanosis or edema. NEUROLOGIC: Normal speech, normal tone PSYCHIATRIC: Normal affect, normal mood. SKIN: No ulceration. Assessment & Plan: A/P 45y s/p H/S, D&C, and ablation admitted for abd pain and fever 1.) Abd pain/fever Tmax 101.5 (4/4 at 0900) Tcur 100.0 (4/5 at 1100), Bcx returned positive for GRAM POSITIVE COCCI IN PAIRS AND CHAINS (likely streptococcus or enteroccus), strep more common vaginal pathogen. ID consulted. Recommended stopping Doxy and starting Vanc and Rocephin. WBC 14.2 -> 11.0 (but still with significant left shift). CT chest/abd/pelvis neg (no PE, Bilateral hydronephrosis). Lactic acid 1.0. 2.) Bilateral hydronephrosis moderate, Cr 0.8 3.) Anemia 10.1, stable from preop labs (11/26) 10.2 4.) Heavy bleeding - 2/2 Xarelto. Minimal bleeding since surgery. 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 Can potentially be on the med for the rest of her life. 8.) Prev C/S x 2 9.) Morphine allergy 10.) Contraception - BTL ISRAEL PEREIRA MD Nov 29, 2020 13:10
--- NOTE | 2020-11-29 14:28 | NUR ---
Patient transferred from room 258. Patient arrived to the floor around 1330 via wheelchair. Patient was settled in the room and was left comfortable in bed with call light in reach.
[2020-11-29 15:08] VITALS: BP 111/70
[2020-11-29] MEDS ORDERED: RIVA20TA2 PO (15:42)
[2020-11-29] MEDS ORDERED: ANTI-COAG MONITOR BY PHARMACY. MC PRN (16:00)
[2020-11-29 19:00] VITALS: BP 122/81
[2020-11-29] MEDS: LACTOBACILLUS RHAMNOSUS GG 1 CAPSULE. PO SCH (20:37)
[2020-11-29 23:00] VITALS: BP 119/78
[2020-11-30 03:00] VITALS: BP 112/75
[2020-11-30 06:47] LABS: CREATININE 0.7 mg/dL (0.6-1.0); GFR 108.5
[2020-11-30 06:52] LABS: BASO % 1 % (0-3); EOS # 0.2 x10^3/uL (0.0-0.7); EOS % 3 % (0-3); HEMATOCRIT 31.4 % (36.0-47.0); LYMPH # 0.7 x10^3/uL (1.0-4.8); LYMPH % 11 % (24-48); MEAN CORPUSCULAR HEMOGLOBIN 27 pg (25-35); MEAN CORPUSCULAR HGB CONC 32 g/dL (31-37); MEAN CORPUSCULAR VOLUME 86 fL (79-100); MONO # 0.5 x10^3/uL (0.0-1.1); MONO % 8 % (0-9); NEUT # 4.8 x10^3/uL (1.8-7.7); NEUT % 77 % (31-73); PLATELET COUNT 289 x10^3/uL (140-400); RED BLOOD COUNT 3.66 x10^6/uL (3.50-5.40); RED CELL DISTRIBUTION WIDTH 23.7 % (11.5-14.5); WHITE BLOOD COUNT 6.3 x10^3/uL (4.0-11.0)
[2020-11-30 07:00] VITALS: BP 111/70
--- NOTE | 2020-11-30 08:31 | PDOC ---
Infectious Disease Note Subjective Subjective pt is feeling much better ROS ROS no n/v/d/sob Vital Sign Vital Signs Vital Signs Date Time Temp Pulse Resp B/P (MAP) Pulse Ox O2 Delivery O2 Flow Rate FiO2 11/30/20 07:00 98.1 93 16 111/70 (84) 99 Room Air 98.1 Physical Exam PHYSICAL EXAM PHYSICAL EXAMINATION: HEENT: NAD. NECK: Supple, no JVP, no lymphadenopathy. LUNGS: Clear. HEART: S1, S2 regular. ABDOMEN: Soft. Left lower quadrant tenderness present, no rebound or guarding. EXTREMITIES: No edema, cyanosis. SKIN: Unremarkable. NEUROLOGIC: The patient is alert, awake and appropriate. No focal neurologic deficit. Labs Lab Laboratory Tests Test 11/30/20 05:50 White Blood Count 6.3 x10^3/uL (4.0-11.0) Red Blood Count 3.66 x10^6/uL (3.50-5.40) Hemoglobin 10.0 g/dL (12.0-15.5) Hematocrit 31.4 % (36.0-47.0) Mean Corpuscular Volume 86 fL (79-100) Mean Corpuscular Hemoglobin 27 pg (25-35) Mean Corpuscular Hemoglobin Concent 32 g/dL (31-37) Red Cell Distribution Width 23.7 % (11.5-14.5) Platelet Count 289 x10^3/uL (140-400) Neutrophils (%) (Auto) 77 % (31-73) Lymphocytes (%) (Auto) 11 % (24-48) Monocytes (%) (Auto) 8 % (0-9) Eosinophils (%) (Auto) 3 % (0-3) Basophils (%) (Auto) 1 % (0-3) Neutrophils # (Auto) 4.8 x10^3/uL (1.8-7.7) Lymphocytes # (Auto) 0.7 x10^3/uL (1.0-4.8) Monocytes # (Auto) 0.5 x10^3/uL (0.0-1.1) Eosinophils # (Auto) 0.2 x10^3/uL (0.0-0.7) Basophils # (Auto) 0.0 x10^3/uL (0.0-0.2) Creatinine 0.7 mg/dL (0.6-1.0) Estimated GFR (Cockcroft-Gault) 108.5 Micro Microbiology 11/28/20 Blood Culture - Final, Complete 11/28/20 Urine Culture - Final, Complete Objective Assessment IMPRESSION: 1. Fever. 2. Leukocytosis. 3. Blood culture 11/28 gram-positive cocci in pairs and chains , Group B strep 4. Status post hysteroscopy and D and C on 11/26/2020 Plan Plan of Care d/c vanc give rocephine today then d/c on po keflex f/u with me if needed recurrence education done ELISEO KAPLAN MD Nov 30, 2020 08:31
[2020-11-30] MEDS: LACTOBACILLUS RHAMNOSUS GG 1 CAPSULE. PO SCH (08:48)
[2020-11-30] MEDS ORDERED: CEPHALEXIN 250 MG CAPSULE. PO SCH (09:00)
[2020-11-30] MEDS ORDERED: RIVAROXABAN 10 MG TABLET. PO SCH (09:00)
--- NOTE | 2020-11-30 09:37 | NUR ---
SW following. Discussed with RN, pt from home with spouse, room air, regular diet. Per RN, pt can be switched to oral abx and likely discharge home with self care today. RN advised no SW needs at this time. SW will continue to follow.
[2020-11-30] MEDS ORDERED: CEPH250C PO (10:06)
--- NOTE | 2020-11-30 10:33 | NUR ---
Patient discharge home with self care today via ambulation accompanied by aid and spouse. Patient is stable, IV removed, prescription, and discharge paperwork given to patient. Patient verbalized understanding of follow up and discharge instruction.
--- NOTE | 2020-11-30 10:47 | PDOC ---
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 Did not seem as bad. Pt feels better Objective: Vital Signs: Vital Signs Date Time Temp Pulse Resp B/P (MAP) Pulse Ox O2 Delivery O2 Flow Rate FiO2 11/29/20 07:45 99.8 110 16 124/71 (88) 100 Room Air 99.8 Vital Signs Date Time Temp Pulse Resp B/P (MAP) Pulse Ox O2 Delivery O2 Flow Rate FiO2 11/30/20 07:45 Room Air 11/30/20 07:00 98.1 93 16 111/70 (84) 99 98.1 Labs: Laboratory Tests Test 11/30/20 05:50 White Blood Count 6.3 x10^3/uL (4.0-11.0) Red Blood Count 3.66 x10^6/uL (3.50-5.40) Hemoglobin 10.0 g/dL (12.0-15.5) L Hematocrit 31.4 % (36.0-47.0) L Mean Corpuscular Volume 86 fL (79-100) Mean Corpuscular Hemoglobin 27 pg (25-35) Mean Corpuscular Hemoglobin Concent 32 g/dL (31-37) Red Cell Distribution Width 23.7 % (11.5-14.5) H Platelet Count 289 x10^3/uL (140-400) Neutrophils (%) (Auto) 77 % (31-73) H Lymphocytes (%) (Auto) 11 % (24-48) L Monocytes (%) (Auto) 8 % (0-9) Eosinophils (%) (Auto) 3 % (0-3) Basophils (%) (Auto) 1 % (0-3) Neutrophils # (Auto) 4.8 x10^3/uL (1.8-7.7) Lymphocytes # (Auto) 0.7 x10^3/uL (1.0-4.8) L Monocytes # (Auto) 0.5 x10^3/uL (0.0-1.1) Eosinophils # (Auto) 0.2 x10^3/uL (0.0-0.7) Basophils # (Auto) 0.0 x10^3/uL (0.0-0.2) Creatinine 0.7 mg/dL (0.6-1.0) Estimated GFR (Cockcroft-Gault) 108.5 Laboratory Tests 11/30/20 05:50 Laboratory Tests 11/30/20 05:50 Laboratory Tests 11/30/20 05:50 Physical Exam: GENERAL: No apparent distress. Alert and oriented. HEENT: Head normocephalic, atraumatic. NECK: Supple LUNGS: Clear to auscultation. HEART: RRR, S1, S2 present, pulses intact ABDOMEN: Soft, positive bowel sounds. EXTREMITIES: No cyanosis or edema. NEUROLOGIC: Normal speech, normal tone PSYCHIATRIC: Normal affect, normal mood. SKIN: No ulceration. Assessment & Plan: A/P 45y s/p H/S, D&C, and ablation admitted for abd pain and fever 1.) Abd pain/fever Tmax 100.3 (/ at 2300), Bcx returned Strep B. ID consulted. Recommended a final dose of Rocephin followed by switching to Keflex. WBC 14.2 -> 11.0 -> 6.3. CT chest/abd/pelvis neg (no PE, Bilateral hydronephrosis). Lactic acid 1.0. 2.) Bilateral hydronephrosis moderate, Cr 0.8 3.) Anemia 10.1, stable from preop labs (11/26) 10.2 4.) Heavy bleeding - 2/2 Xarelto. Minimal bleeding since surgery. 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 Can potentially be on the med for the rest of her life. 8.) Prev C/S x 2 9.) Morphine allergy 10.) Contraception - BTL ISRAEL PEREIRA MD Nov 30, 2020 10:47
--- NOTE | 2020-11-30 11:28 | DS ---
DATE OF DISCHARGE: 11/30/2020 ADMISSION DIAGNOSES: 1. Postop pain. 2. Postop fever. 3. Status post hysteroscopy, D and C and NovaSure ablation on 11/26/2020. 4. Anemia. 5. Heavy bleeding secondary to Xarelto. 6. Fibroids. 7. History of myomectomy. 8. History of deep venous thrombosis and pulmonary embolism, restarted on Xarelto, 09/27/2020. 9. Previous section x 2. 10. MORPHINE ALLERGY. DISCHARGE DIAGNOSES: 1. Postop pain. 2. Postop fever. 3. Status post hysteroscopy, D and C and NovaSure ablation on 11/26/2020. 4. Anemia. 5. Heavy bleeding secondary to Xarelto. 6. Fibroids. 7. History of myomectomy. 8. History of deep venous thrombosis and pulmonary embolism, restarted on Xarelto, 09/27/2020. 9. Previous section x 2. 10. MORPHINE ALLERGY. 11. Bilateral hydronephrosis. 12. Blood cultures positive for strep B. PROCEDURE: None. BRIEF HOSPITAL COURSE: The patient is a 45-year-old 3, para 2-0-1-2, status post hysteroscopy, D and C, and NovaSure ablation on 11/26/2020 who presented to the ER with abdominal pain and fever. The patient reported that both of them began the night prior to her presentation to the ER. Her pain was mostly located in her left lower quadrant. The patient also reported that she had not had any bleeding since the surgery. The patient was subsequently admitted for evaluation. The patient was started on doxycycline for a possible infection related to her surgery. The patient's other workup had been negative as far as a CT that showed no new clots in her lung or source of infection, although it did note bilateral hydronephrosis, mild. The patient also had a white count 14.2 with a left shift of 93%. Blood cultures were obtained in the ER and ultimately returned positive. At that time, Infectious Disease was consulted. On hospital day #1, the patient's blood culture returned positive for gram-positive cocci in pairs and chains. Her white count had decreased, but the patient was continuing to spike. ID recommended changing her antibiotic course to Rocephin and vancomycin. By hospital day #2, the patient's blood cultures returned positive for strep B. Her antibiotic regime was focused where her antibiotic regime was changed to stopping the vancomycin, giving one additional shot of Rocephin and then following up with Keflex on a p.o. basis on an outpatient. The patient was feeling better and white count was continued to improve with a white count of 6.3 on hospital day #2, the patient was subsequently discharged. DISCHARGE INSTRUCTIONS: The patient was told to resume her previous discharge instructions given her surgery of pelvic rest for 6 weeks. CALL IF: The patient was to call if she had fevers, chills, nausea, vomiting, abdominal pain or any additional questions or concerns. FOLLOWUP APPOINTMENT: The patient was to keep her previously made appointment for Sunday at 9:00 a.m. DISCHARGE MEDICATIONS: The patient was given a prescription for Keflex 500 t.i.d. for 16 days. ISRAEL PEREIRA MD DR: ZACHARIAH/nts JOB#: [id number] / [id number]
== END 2020-11-30 10:42 | disposition home or self-care (01) | DRG 864 ==
LOC: ER 06:05 → 2 SOUTH 09:13 → OBSVTOIN 09:13 → 4 NORTH 11-29 13:34
PROVIDERS: ADMIT Obstetrics & Gynecology; ATTEND Obstetrics & Gynecology
DX: R50.82 Postprocedural fever (principal); N13.30 Unspecified hydronephrosis; J98.11 Atelectasis; D68.32 Hemorrhagic disorder due to extrinsic circulating anticoagulants; R58 Hemorrhage, not elsewhere classified; G89.18 Other acute postprocedural pain; K21.9 Gastro-esophageal reflux disease without esophagitis; D72.829 Elevated white blood cell count, unspecified; F17.210 Nicotine dependence, cigarettes, uncomplicated; F41.9 Anxiety disorder, unspecified; B95.1 Streptococcus, group B, as the cause of diseases classified elsewhere; D64.9 Anemia, unspecified; R19.7 Diarrhea, unspecified; Z91.013 Allergy to seafood; Z83.3 Family history of diabetes mellitus; Z86.718 Personal history of other venous thrombosis and embolism; Z88.5 Allergy status to narcotic agent; Z98.891 History of uterine scar from previous surgery; Z86.711 Personal history of pulmonary embolism; Z79.01 Long term (current) use of anticoagulants; Z82.49 Family history of ischemic heart disease and other diseases of the circulatory system; Z80.3 Family history of malignant neoplasm of breast
CPT/HCPCS: 36415; 71275; 74177; 80053; 81001; 81025; 82565; 83605; 83735; 85007; 85025; 87040; 87077; 87086; 87186; 87205; 96361; 96365; 96367; 96375; 96376; 99285; J0696; J1170; J2405; J2765; J3010; J3370; J3480; J3490; J7030; J7040; J7050; J7060; Q9967; G0378